=== PATIENT | male | born 1965 | race Two or more races ===

== ENCOUNTER 2020-06-04 22:55 | Emergency (ER) | payer OTHER ==
[~2020-06-04] VITALS: Ht 180.3 cm; Wt 113.4 kg
[2020-06-04] MEDS ORDERED: hydrALAZINE HCL IV 20 MG VIAL ONE (23:06)
--- NOTE | 2020-06-04 23:11 | NUR ---
PATIENT CAME TO [facility] ER BED 3 C/O HIGH BLOOD PRESSURE OF 230/ 118 AT HOME. PATIENT IS COVID POSITIVE AND ASYMPTOMATIC. PATIENT IS AAOX4. NO SOB. BREATHING EVENLY AND UNLABORED ON ROOM AIR. CONNECTED TO MONITOR.
--- NOTE | 2020-06-04 23:19 | NUR ---
BLOOD COLLECTED AND SENT TO THE LAB WITH THE X RAY DEVELOPER.
[2020-06-04 23:21] LABS: EOSINOPHILS % (AUTO) 5.2 % (0.0-6.0); HEMATOCRIT 49 % (39-51); HEMOGLOBIN 16.5 g/dL (13.5-17.5); LYMPHOCYTES # (AUTO) 1.2 /CMM (0.8-4.8); LYMPHOCYTES % (AUTO) 25.8 % (20.0-44.0); MEAN CORPUSCULAR HGB CONC 34 g/dl (31.0-36.0); MEAN CORPUSCULAR VOLUME 92 fL (80-96); MONOCYTES # (AUTO) 0.6 /CMM (0.1-1.30); MONOCYTES % (AUTO) 12.4 % (2.0-12.0); NEUTROPHILS # (AUTO) 2.6 /CMM (1.8-8.9); NEUTROPHILS % (AUTO) 55.6 % (43.0-81.0); PLATELET COUNT (AUTO) 112 /CMM (150-450); RED BLOOD CELL COUNT(AUTO) 5.33 MIL/uL (4.5-6.0); WHITE BLOOD COUNT (AUTO) 4.7 K/uL (4.3-11.0)
[2020-06-04] MEDS: hydrALAZINE HCL IV 20 MG VIAL IV ONE (23:30)
--- NOTE | 2020-06-04 23:34 | NUR ---
PATIENT BROUGHT BACK FROM CT.
[2020-06-04 23:36] LABS: CALCIUM, SERUM 8.7 mg/dL (8.5-10.1); CARBON DIOXIDE 27 mmol/L (21-32); CHLORIDE 99 mmol/L (98-107); CREATININE 1.1 mg/dL (0.6-1.3); GLUCOSE 268 mg/dL (74-106); SODIUM SERUM 134 mmol/L (136-145); UREA NITROGEN, BLOOD 18 mg/dL (7-18)
[2020-06-04 23:44] LABS: ALANINE AMINOTRANSFERASE 60 U/L (12-78); ALBUMIN 3.3 g/dL (3.4-5.0); ALKALINE PHOSPHATASE 62 U/L (46-116); ASPARTATE AMINOTRANSFERASE 35 U/L (15-37); BILIRUBIN,DIRECT 0.1 mg/dL (0.0-0.2); BILIRUBIN,TOTAL 0.4 mg/dL (0.2-1.0)
--- NOTE | 2020-06-05 00:45 | NUR ---
Patient discharged to home in stable condition. Written and verbal after care instructions given. Patient verbalizes understanding of instruction.
--- NOTE | 2020-06-05 00:45 | NUR ---
IV removed. Catheter intact and site benign. Pressure and 4x4 applied to site. No bleeding noted.
[2020-06-05 00:46] VITALS: BP 144/74
== END 2020-06-05 00:46 | disposition home or self-care (01) ==
LOC: ER 22:57
DX: I16.0 Hypertensive urgency (principal); R42 Dizziness and giddiness
CPT/HCPCS: 36415; 70450; 71045; 80048; 80076; 84484; 85025; 93005; 96374; 99285; J0360